=== PATIENT | female | born 1955 | race African-American/Black ===

== ENCOUNTER 2016-05-24 07:31 | Day surgery (SDC) | payer BC ==
[~2016-05-24 07:31] MED LIST: BUPIVACAINE HCL 0.75% INJ/PF (7.5 MG/1 ML) 10 ML SDV OS PRN; CHONDR SU A NA/HYALUR INTRAOC KIT (SURGICARE) ONE; EPINEPHRINE INJ/PF 1 MG/1 ML AMPULE ONE; FENTANYL CITRATE INJ/PF 100 MCG/2 ML AMPUL ONE; KETOROLAC TROMETHAMINE 0.45% 4 DROP/0.4 ML DROPERETTE OS PRN; LIDOCAINE 1% INJ-PF (10 MG/ML) 30 ML SDV ONE; LIDOCAINE 4% INJ/PF (40 MG/ML) 5 ML AMPUL OS PRN; MIDAZOLAM 2 MG/2 ML INJ ONE
[2016-05-24] MEDS: TROPICAMIDE 1% OPH SOLN 3 ML OS PRN ×3 (07:50→08:05)
[2016-05-24] MEDS: CYCLOPENTOLATE 0.2%/PHENYLEPHRINE 1% OPH SOLN 2 ML OS PRN ×3 (07:50→08:05)
[2016-05-24] MEDS: BESIFLOXACIN HCL 0.6% OPH SUSP 5 ML BOTTLE OS PRN ×3 (07:51→08:44)
[2016-05-24] MEDS: TETRACAINE HCL 0.5% OPH SOLN 0.6 ML DROPERETTE OS PRN ×2 (07:52→08:09)
--- NOTE | 2016-05-24 08:58 | [facility] DISCHARGE SUMMARY E ---
[facility] Discharge Summary NAME: DORON CARRINGTON AGE: 60Y ADMITTED: 05/24/2016 DISCHARGED: 05/24/2016 PREOPERATIVE DIAGNOSIS: Cataract, left eye. POSTOPERATIVE DIAGNOSIS: Cataract, left eye. HOSPITAL COURSE: The patient is a 60-year-old lady who underwent uneventful cataract extraction with intraocular lens implant, left eye, on 05/24/2016. She will be discharged to home. She was instructed to resume preoperative medications, take Tylenol as needed for discomfort, to keep her eye shielded, to use Besivance, Durezol, and Ilevro at 3 p.m. and 8 p.m., and to followup in my office this afternoon at 3:30 p.m. DICTATING PHYSICIAN: PRIYANK GARCIA M.D. [id number] PHY#: [id number] ID: [id number] JOB#: [id number] ACCT: [id number] cc:PRIYANK GARCIA M.D. >
--- NOTE | 2016-05-24 08:58 | [facility] OPERATIVE REPORT E ---
[facility] Operative Report NAME: DORON CARRINGTON AGE: 60Y DATE OF SURGERY: 05/24/2016 ROOM: PREOPERATIVE DIAGNOSIS: Cataract, left eye. POSTOPERATIVE DIAGNOSIS: Cataract, left eye. PROCEDURE PERFORMED: Phacoemulsification with posterior chamber intraocular lens, left eye. SURGEON: Pamela Garcia MD ANESTHESIA: Topical with MAC. INDICATIONS FOR SURGERY: Difficulty reading road signs and driving at night. Best corrected visual acuity 20/70. PROCEDURE: The patient was brought to the operating room and placed on the operative table. Following tetracaine drops, topical anesthesia was administered. This consisted of instrument wipe pledgets soaked in a solution of 4% Xylocaine mixed with 0.75% Marcaine in a 1:2 ratio. A 2 x 1 cm pledget was placed in the superior fornix. A 1 x 1 cm pledget was placed in the inferior fornix. The eye was patched shut for 5 minutes. The patch was removed. The eye was sterilely prepped and draped in the usual manner. Lid speculum was placed in the eye. The pledgets were removed. 4-0 black silk sutures were placed around the superior and the inferior rectus muscles to be used as traction. A conjunctival peritomy was made at the 10 o'clock position. Hemostasis was obtained with bipolar cautery. A posterior limbal groove was created using a crescent knife and dissected anteriorly towards the cornea. A sharp point blade was used to create a paracentesis site at the 2 o'clock position. A 2.4 mm keratome was used to enter the anterior chamber through the groove. Viscoelastic was injected into the anterior chamber. An anterior capsulotomy was performed using Utrata forceps in a capsulorrhexis fashion. Hydrodissection and hydrodelineation were performed. Phacoemulsification was performed in ljqens-sbf-gzywfhy technique. Total phaco time 40 seconds. Following this, the I/A unit was used to remove residual cortex. Viscoelastic was injected into the capsular bag. Intraocular lens model [id number], 18.0 diopters, serial number [id number] was placed in the capsular bag. The I/A unit was used to remove residual viscoelastic. The wound was seen to be watertight under high and low pressure, and no sutures were placed. The intraocular lens was well centered. The pressure was adjusted in the eye to normal pressure. The 4-0 black silk sutures and lid speculum were removed. The eye was shielded after Besivance drops were placed. The patient tolerated the procedure well and was sent to the recovery room in good condition. Following the incision, 0.5 mL of 1% lidocaine was injected into the eye. DICTATING PHYSICIAN: PAMELA GARCIA M.D. [id number] PHY#: [id number] ID: [id number] JOB#: [id number] ACCT: [id number] cc:PAMELA GARCIA M.D. >
[2016-05-24] MEDS ORDERED: ONDANSETRON HCL INJ/PF 4 MG/2 ML SDV ONE (09:41)
== END 2016-05-24 09:52 | disposition home or self-care (01) ==
LOC: SC 07:31
PROVIDERS: ATTEND Ophthalmology
PROC: 08RK3JZ Replacement of Left Lens with Synthetic Substitute, Percutaneous Approach (ICD-10-PCS; principal; 2016-05-24 08:15)
DX: H25.813 Combined forms of age-related cataract, bilateral (principal); H53.002 Unspecified amblyopia, left eye; H04.123 Dry eye syndrome of bilateral lacrimal glands; H43.813 Vitreous degeneration, bilateral; E11.9 Type 2 diabetes mellitus without complications; E89.0 Postprocedural hypothyroidism; M19.90 Unspecified osteoarthritis, unspecified site; Z88.2 Allergy status to sulfonamides; Z79.84 Long term (current) use of oral hypoglycemic drugs; Z79.899 Other long term (current) drug therapy; Z85.850 Personal history of malignant neoplasm of thyroid
CPT/HCPCS: 82962; 66984; V2632; J2250; J3490 ×4; J0171; J3010; J2405; 142

== ENCOUNTER → 2018-02-11 | Outpatient (CLI) | payer BC ==
--- NOTE | 2018-02-11 13:18 | RADIOLOGY REPORT (SQ) ---
EXAM DESCRIPTION: NM GASTRIC EMPTYING STUDY COMPLETED DATE/TIME: 02/11/2018 12:43 pm REASON FOR STUDY: DIABETES MELLITUS TYPE 2 E11.9 TYPE 2 DIABETES MELLITUS WITHOUT COMPLICATIONS K31 .84 GASTROPARESIS COMPARISON: None. RADIONUCLIDE AND DOSE: 2 millicuries Tc-99m Sulfur Colloid. Egg salad sandwich The route of agent administration: Oral. TECHNIQUE: 1 minute serial static imaging performed at time of meal, 1 hour, 2 hours, 3 hours, and 4 hours as needed. Once stomach reaches 90% emptying, the test is complete. Image intensity values plo tted with respect to time with linear regression algorithm. LIMITATIONS: None. FINDINGS: Patient was observed for 4 hours. Immediate post meal serves as baseline. Gastric emptying at 30 minutes was 16.3%. Gastric emptying at 60 minutes was 29.9%. Gastric emptying at 90 minutes was 41.8% Gastric emptying at 120 minutes was 50.8% Gastric emptying at 240 minutes was 75.8%. IMPRESSION: Delayed gastric emptying. At 240 minutes gastric emptying should be on the order of 90 to 95%. TECHNICAL DOCUMENTATION: JOB ID: [id number] [employer]- All Rights Reserved rev Reading location - IP/workstation name: [email or web address]
== END ==
LOC: RAD 07:55
PROVIDERS: ATTEND Internal Medicine Gastroenterology
DX: E11.9 Type 2 diabetes mellitus without complications (principal); K31.84 Gastroparesis
CPT/HCPCS: 78264; A9541